=== PATIENT | female | born 2000 | race Caucasian/White ===

== ENCOUNTER 2019-05-13 21:30 | Emergency (ER) | payer OTHER ==
[~2019-05-13] VITALS: Ht 162.6 cm; Wt 44.0 kg
[2019-05-13 21:36] VITALS: BP 107/67; Ht 162.6 cm; Wt 44.0 kg
== END 2019-05-13 23:30 | disposition home or self-care (01) ==
LOC: ED 21:30
DX: L72.0 Epidermal cyst (principal)